=== PATIENT | female | born 1980 | race American Indian/Alaskan Native ===

== ENCOUNTER 2017-10-03 10:28 | Emergency (ER) | payer BC ==
--- NOTE | 2017-10-03 11:41 | Emergency Department Report ---
ED Headache HPI - General Chief Complaint: Headache Stated Complaint: HEADACHE Time Seen by Provider: 10/03/17 11:32 Source: patient, family - History of Present Illness Initial Comments: Patient reports that she's been having migraine since Sunday that's been on and off but when she woke up this morning in her blood sugar was low at 68. That she ate and repeat and was at 85. She has a history of migraine headache. Her headache is located in both sides of her head frontally and it is 7 out of 10 achy. Positive light sensitivity. Positive nausea and vomiting. Denies any fever or chills. Denies any sinus pain pressure or congestion. Denies any neck pain or stiffness. Denies abdominal pain, vaginal bleeding or discharge. Denies any numbness or tingling to extremities. Denies any visual disturbances. No medication taken at home. Timing/Duration: constant, increasing Quality: severe, achy, pressure Head Injury Location: frontal Recent Head Trauma: chronic headaches Modifying Factors: improves with: exposure to light, movement Associated Symptoms: nausea/vomiting. denies: confusion, fatigue, facial pain, fever/chills, flushing, loss of consciousness, nasal congestion, nasal drainage , numbness in legs/feet, rash, seizures, sinus infection, stiff neck, vision changes, weakness Allergies/Adverse Reactions: Allergies cephalexin [From Keflex] Allergy (Verified 10/03/17 10:42) Hives Sulfa (Sulfonamide Antibiotics) Allergy (Verified 10/03/17 10:42) Hives Home Medications: Ambulatory Orders Butalb/Acetaminophen/Caffeine [Fioricet 50-300-40 mg CAP] 1 cap PO Q6HR PRN #12 cap 10/03/17 Fluconazole [Diflucan TAB] 100 mg PO QDAY PRN 2 Days #2 tablet 10/03/17 Nitrofurantoin Monohyd/M-Cryst [Macrobid 100 mg Capsule] 100 mg PO Q12H 7 Days # 14 capsule 10/03/17 Promethazine [Phenergan TAB] 25 mg PO Q6HR PRN #12 tab 10/03/17 diphenhydrAMINE [Benadryl CAP] 50 mg PO Q8HR PRN #12 capsule 10/03/17 ED Review of Systems ROS: Stated complaint: HEADACHE Other details as noted in HPI Comment: All other systems reviewed and negative Constitutional: no symptoms reported Eyes: denies: eye pain, vision change ENT: denies: throat pain, congestion Respiratory: no symptoms reported Cardiovascular: denies: chest pain, palpitations, dyspnea on exertion, edema, syncope, paroxysmal nocturnal dyspnea Gastrointestinal: nausea, vomiting, other (possible ). denies: abdominal pain, diarrhea, constipation, hematemesis, melena, hematochezia Genitourinary: denies: urgency, dysuria, frequency, hematuria, discharge, abnormal menses Musculoskeletal: denies: back pain, joint swelling, arthralgia, myalgia Skin: denies: rash Neurological: headache. denies: weakness, numbness, paresthesias, confusion, abnormal gait, vertigo ED Past Medical Hx - Past Medical History Previous Medical History?: Yes Hx Diabetes: Yes Hx Headaches / Migraines: Yes (migraine) Hx Asthma: Yes - Surgical History Past Surgical History?: Yes Additional Surgical History: C/S - Family History Family history: diabetes, hypertension - Social History Smoking Status: Never Smoker Substance Use Type: None - Medications Home Medications: Home Medications Medication Instructions Recorded Confirmed Last Taken Type Butalb/Acetaminophen/Caffeine 1 cap PO Q6HR PRN #12 cap 10/03/17 Unknown Rx [Fioricet 50-300-40 mg CAP] Fluconazole [Diflucan TAB] 100 mg PO QDAY PRN 2 Days #2 tablet 10/03/17 Unknown Rx Nitrofurantoin Monohyd/M-Cryst 100 mg PO Q12H 7 Days #14 capsule 10/03/17 Unknown Rx [Macrobid 100 mg Capsule] Promethazine [Phenergan TAB] 25 mg PO Q6HR PRN #12 tab 10/03/17 Unknown Rx diphenhydrAMINE [Benadryl CAP] 50 mg PO Q8HR PRN #12 capsule 10/03/17 Unknown Rx ED Physical Exam - General Limitations: No Limitations General appearance: alert, in no apparent distress - Head Head exam: Present: atraumatic, normocephalic, normal inspection, other - Expanded Head Exam Expanded Head exam: Absent: laceration, abrasion, hematoma, racoon eyes, españa's sign, general tenderness, tenderness of temporal artery, CSF rhinorrhea, CSF otorrhea - Eye Eye exam: Present: normal appearance, PERRL, EOMI. Absent: scleral icterus, conjunctival injection, nystagmus Pupils: Present: normal accommodation - ENT ENT exam: Present: normal exam, normal orophraynx, mucous membranes moist, TM's normal bilaterally, normal external ear exam - Neck Neck exam: Present: normal inspection, full ROM, other (no C-spine tenderness). Absent: tenderness, lymphadenopathy - Respiratory Respiratory exam: Present: normal lung sounds bilaterally. Absent: respiratory distress, chest wall tenderness - Cardiovascular Cardiovascular Exam: Present: regular rate, normal rhythm, normal heart sounds - GI/Abdominal GI/Abdominal exam: Present: soft, normal bowel sounds. Absent: distended, tenderness, guarding, rebound, rigid, organomegaly, mass, bruit, pulsatile mass , hernia - Extremities Exam Extremities exam: Present: normal inspection, full ROM, normal capillary refill , other (no clubbing, cyanosis or edema. Positive pulses extremities and no neurovascular compromise.). Absent: tenderness, pedal edema, joint swelling, calf tenderness - Back Exam Back exam: Present: normal inspection, full ROM, other (ambulates without any difficulties). Absent: tenderness, CVA tenderness (R), CVA tenderness (L), muscle spasm, paraspinal tenderness, vertebral tenderness, rash noted - Neurological Exam Neurological exam: Present: alert, oriented X3, normal gait, reflexes normal. Absent: motor sensory deficit - Expanded Neurological Exam Expanded Neurological exam: Absent: innattentive, memory loss-remote event, memory loss- recent event, ataxia, receptive aphasia, expressive aphasia, total aphasia, tremor, protecting the airway Patient oriented to: Present: person, place, time Speech: Present: fluid speech Cranial nerves: EOM's Intact: Normal, Gag Reflex: Normal, Tongue Deviation: Normal, Nystagmus: Normal, Facial Sensation: Normal Cerebellar function: Romberg: Normal Upper motor neuron: Pronator Drift: Normal, Sensory Extinction: Normal Sensory exam: Upper Extremity Light Touch: Normal, Upper Extremity Temperature: Normal, UE 2 Point Discrimination: Normal, Lower Extremity Light Touch: Normal, Lower Extremity Temperature: Normal, LE 2 Point Discrimination: Normal Motor strength exam: RUE: 5, LUE: 5, RLE: 5, LLE: 5 DTR: bicep (R): 2+, bicep (L): 2+, tricep (R): 2+, tricep (L): 2+, knee (R): 2+ , knee (L): 2+, ankle (R): 2+, ankle (L): 2+ Best Eye Response (Myah): (4) open spontaneously Best Motor Response ([place]): (6) obeys commands Best Verbal Response (Myah): (5) oriented Myah Total: 15 - Psychiatric Psychiatric exam: Present: normal affect, normal mood - Skin Skin exam: Present: warm, dry, intact, normal color. Absent: rash ED Course Vital Signs 10/03/17 10/03/17 10:42 14:49 Temperature 98.5 F Pulse Rate 100 H 94 H Respiratory 18 16 Rate Blood Pressure 135/71 Blood Pressure 136/70 [Right] O2 Sat by Pulse 100 98 Oximetry - Reevaluation(s) Reevaluation #1: 10/03/17 11:52 Patient with migraine headache, she is unsure if she is because she said they have been trying. Labs ordered. Patient to receive IV fluid normal saline 1 L, morphine IV and Zofran IV. Will reevaluate Reevaluation #2: 10/03/17 12:32 Patient has episode of hives which is localized to her left forearm after IV placed and given IV Zofran. She said this has happened to her in the past but she is okay with taking by mouth Zofran. Benadryl 50 mg IV and Decadron 10 mg IV ordered for hives and this also helped with her headache. Patient still to give urine sample. She received morphine 4 mg IV. ED Medical Decision Making - Lab Data Result diagrams: 10/03/17 12:10 10/03/17 12:10 Lab Results 10/03/17 10/03/17 10/03/17 Range/Units 10:50 12:10 12:10 WBC 10.5 (4.5-11.0) K/mm3 RBC 4.51 (3.65-5.03) M/mm3 Hgb 13.4 (10.1-14.3) gm/dl Hct 39.7 (30.3-42.9) % MCV 88 (79-97) fl MCH 30 (28-32) pg MCHC 34 (30-34) % RDW 13.1 L (13.2-15.2) % Plt Count 198 (140-440) K/mm3 Lymph % (Auto) 9.7 L (13.4-35.0) % [place] % (Auto) 3.6 (0.0-7.3) % Eos % (Auto) 0.0 (0.0-4.3) % Baso % (Auto) 0.6 (0.0-1.8) % Lymph # 1.0 L (1.2-5.4) K/mm3 [place] # 0.4 (0.0-0.8) K/mm3 Eos # 0.0 (0.0-0.4) K/mm3 Baso # 0.1 (0.0-0.1) K/mm3 Seg Neutrophils % 86.1 H (40.0-70.0) % Seg Neutrophils # 9.0 H (1.8-7.7) K/mm3 Sodium 139 (137-145) mmol/L Potassium 4.0 (3.6-5.0) mmol/L Chloride 97.1 L (98-107) mmol/L Carbon Dioxide 26 (22-30) mmol/L Anion Gap 20 mmol/L BUN 10 (7-17) mg/dL Creatinine 0.5 L (0.7-1.2) mg/dL Estimated GFR > 60 ml/min BUN/Creatinine Ratio 20 % Glucose 128 H (65-100) mg/dL POC Glucose 112 H (70-105) Calcium 8.9 (8.4-10.2) mg/dL HCG, Qual (Negative) Urine Color (Yellow) Urine Turbidity (Clear) Urine pH (5.0-7.0) Ur Specific [place] (1.003-1.030) Urine Protein (Negative) mg/dL Urine Glucose (UA) (Negative) mg/dL Urine Ketones (Negative) mg/dL Urine Blood (Negative) Urine Nitrite (Negative) Urine Bilirubin (Negative) Urine Urobilinogen (<2.0) mg/dL Ur Leukocyte Esterase (Negative) Urine WBC (Auto) (0.0-6.0) /HPF Urine RBC (Auto) (0.0-6.0) /HPF U Epithel Cells (Auto) (0-13.0) /HPF 10/03/17 10/03/17 Range/Units 12:10 Unknown WBC (4.5-11.0) K/mm3 RBC (3.65-5.03) M/mm3 Hgb (10.1-14.3) gm/dl Hct (30.3-42.9) % MCV (79-97) fl MCH (28-32) pg MCHC (30-34) % RDW (13.2-15.2) % Plt Count (140-440) K/mm3 Lymph % (Auto) (13.4-35.0) % [place] % (Auto) (0.0-7.3) % Eos % (Auto) (0.0-4.3) % Baso % (Auto) (0.0-1.8) % Lymph # (1.2-5.4) K/mm3 [place] # (0.0-0.8) K/mm3 Eos # (0.0-0.4) K/mm3 Baso # (0.0-0.1) K/mm3 Seg Neutrophils % (40.0-70.0) % Seg Neutrophils # (1.8-7.7) K/mm3 Sodium (137-145) mmol/L Potassium (3.6-5.0) mmol/L Chloride (98-107) mmol/L Carbon Dioxide (22-30) mmol/L Anion Gap mmol/L BUN (7-17) mg/dL Creatinine (0.7-1.2) mg/dL Estimated GFR ml/min BUN/Creatinine Ratio % Glucose (65-100) mg/dL POC Glucose (70-105) Calcium (8.4-10.2) mg/dL HCG, Qual Negative (Negative) Urine Color Yellow (Yellow) Urine Turbidity Cloudy (Clear) Urine pH 7.0 (5.0-7.0) Ur Specific [place] 1.024 (1.003-1.030) Urine Protein 30 mg/dl (Negative) mg/dL Urine Glucose (UA) >=500 (Negative) mg/dL Urine Ketones 20 (Negative) mg/dL Urine Blood Neg (Negative) Urine Nitrite Neg (Negative) Urine Bilirubin Neg (Negative) Urine Urobilinogen < 2.0 (<2.0) mg/dL Ur Leukocyte Esterase Tr (Negative) Urine WBC (Auto) 23.0 H (0.0-6.0) /HPF Urine RBC (Auto) 3.0 (0.0-6.0) /HPF U Epithel Cells (Auto) 5.0 (0-13.0) /HPF Urine culture sent - Medical Decision Making ED course: Ptcomplaining of migraine headache, nausea and vomiting and sensitivity to light. She has chronic migraine headaches. She was given Zofran 4 mg IV and this causes her to have localized urticaria to left forearm. Patient given IV fluid normal saline 1 L, Benadryl 50 mg IV, morphine 4 mg IV. Lab results show urinary tract infection, negative .CBC stable except for some minor abnormalities, chemistry stable. Urine also patient with ketones bicarbonate is stable. BUN and creatinine Stable POC blood sugar is 112 and her blood sugar via chemistry is 128. Patient also given Decadron 10 mg IV. Urticaria clearing. Her headache has subsided. Patient discharged home with prescription for Fioricet, Benadryl, Phenergan and Macrobid and fluconazole as she says she always gets infection after taken antibiotic. She requested to for 2 days prophylaxis. Patient to follow up with her primary care physician in 2 days. She was given detailed information on laboratory results, diagnosis and treatment plan and she voiced understanding. Patient discharged home with her in stable condition. Critical care attestation.: If time is entered above; I have spent that time in minutes in the direct care of this critically ill patient, excluding procedure time. ED Disposition Clinical Impression: Urticaria at injection site, Acute cystitis without hematuria, Nausea and vomiting in adult, Ketonuria, Dehydration, mild, Glycosuria Migraine headache without aura Qualifiers: Status migrainosus presence: without status migrainosus Intractability: not intractable Qualified Code(s): G43.009 - Migraine without aura, not intractable , without status migrainosus Disposition: DC-01 TO HOME OR SELFCARE Is pt being admited?: No Condition: Stable Instructions: Dehydration (ED), Urinary Tract Infection in Women (ED), Migraine Headache (ED), Managing Diabetes During Sick Days (ED), Acute Nausea and Vomiting (ED) Additional Instructions: Please follow up with primary care physician in 2 days. Monitor Blood sugar Increase fluid intake to 3 L of water daily Take antibiotics as prescribed for urinary tract infection Take Phenergan for nausea, Benadryl for urticaria. 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 taking his medication as a cause drowsiness Take Fioricet for headache Prescriptions: Butalb/Acetaminophen/Caffeine [Fioricet 50-300-40 mg CAP] 1 cap PO Q6HR PRN #12 cap PRN Reason: Migraine Headache diphenhydrAMINE [Benadryl CAP] 50 mg PO Q8HR PRN #12 capsule PRN Reason: Allergic Reaction Fluconazole [Diflucan TAB] 100 mg PO QDAY PRN 2 Days #2 tablet PRN Reason: yeast prophylaxis Nitrofurantoin Monohyd/M-Cryst [Macrobid 100 mg Capsule] 100 mg PO Q12H 7 Days # 14 capsule Promethazine [Phenergan TAB] 25 mg PO Q6HR PRN #12 tab PRN Reason: Nausea Referrals: PRIMARY CARE, [Primary Care Provider] - 10/05/17 Forms: Accompanied Note, Work/School Release Form(ED)
[2017-10-03] MEDS ORDERED: NACL 0.9% 1000 ML 1,000 ML IV ONE (11:42)
[2017-10-03] MEDS ORDERED: ZOFRAN IV ONE (11:42)
[2017-10-03] MEDS ORDERED: MORPHINE IV ONE (11:53)
[2017-10-03 12:26] LABS: Basophils # (Auto) 0.1 K/mm3 (0.0-0.1); Basophils % (Auto) 0.6 % (0.0-1.8); Hematocrit 39.7 % (30.3-42.9); Hemoglobin 13.4 gm/dl (10.1-14.3); Lymphocytes % (Auto) 9.7 % (13.4-35.0); Mean Corpuscular HGB Conc 34 % (30-34); Mean Corpuscular Hemoglobin 30 pg (28-32); Mean Corpuscular Volume 88 fl (79-97); Monocytes # (Auto) 0.4 K/mm3 (0.0-0.8); Monocytes % (Auto) 3.6 % (0.0-7.3); Platelet Count 198 K/mm3 (140-440); Red Blood Count 4.51 M/mm3 (3.65-5.03); Red Cell Distribution Width 13.1 % (13.2-15.2)
[2017-10-03] MEDS ORDERED: BENADRYL IV ONE (12:27)
[2017-10-03] MEDS ORDERED: DECADRON IV ONE (12:27)
[2017-10-03 12:42] LABS: BUN/Creatinine Ratio 20; Blood Urea Nitrogen 10 mg/dL (7-17); Calcium 8.9 mg/dL (8.4-10.2); Hemolysis Index 3
[2017-10-03 13:45] LABS: Bilirubin,Urine NEG (Negative); Blood,Urine NEG (Negative); Color,Urine Yellow (Yellow); Urobilinogen,Urine < 2.0 mg/dL (<2.0)
[2017-10-03 14:50] VITALS: BP 136/70
== END 2017-10-03 14:49 | disposition home or self-care (01) ==
LOC: ED 10:28
DX: G43.009 Migraine without aura, not intractable, without status migrainosus (principal); E86.0 Dehydration; N30.00 Acute cystitis without hematuria; L50.8 Other urticaria; R82.4 Acetonuria; E11.9 Type 2 diabetes mellitus without complications; J45.909 Unspecified asthma, uncomplicated; Z88.1 Allergy status to other antibiotic agents; Z88.2 Allergy status to sulfonamides
CPT/HCPCS: 36415; 80048; 81001; 82962; 84703; 85025; 87076; 87086; 87186; 96361; 96374; 96375; 99283; J1100; J1200; J2270; J2405; J7030